=== PATIENT | female | born 1985 | race Caucasian/White ===

== ENCOUNTER → 2020-08-18 | Outpatient (CLI) | payer BC ==
[~2020-08-18] MED LIST: PREN1TAB19 PO
--- NOTE | 2020-08-18 16:02 | Diagnostic Imaging Report ---
INDICATION: Non toxic goiter. TECHNIQUE: Grayscale sonographic images of the thyroid gland. CORRELATION STUDY: None. FINDINGS: RIGHT LOBE: Asymmetrically enlarged 6.0 x 4.1 x 3.6 cm. There is heterogeneous echotexture throughout the enlarged right lobe with increased vascularity. There is what appears to be a fairly large mass occupying majority of the right lobe. This measures 5.4 x 4.0 x 3.2 cm. While slightly heterogeneous, it is predominantly solid. Vascularity is present. No definitive microcalcification. LEFT LOBE: Borderline enlarged 4.8 x 1.8 x 2.1 cm. There is normal echotexture about the left lobe. Isthmus appears unremarkable. IMPRESSION: Large, 5.4 cm mass occupying majority of the right thyroid lobe. TR 4 lesion, moderately suspicious. Fine needle aspiration is recommended. (Normal gland size: 4-5 x 2 x 2 cm) Dictated by: Dictated on workstation # [id number]
--- NOTE | 2020-08-21 09:26 | Diagnostic Imaging Report ---
INDICATION: Routine screening. COMPARISON: No prior mammograms are available for comparison. This is a baseline study. TECHNIQUE: 2D and 3D bilateral screening mammography was performed with CAD. FINDINGS: Scattered fibroglandular densities are identified bilaterally. There is an asymmetric area of increased density in the medial left breast at mid depth. No discrete mass is identified and this may represent benign parenchymal asymmetry. There is a benign nodule in the outer and slightly upper right breast retroareolar region. Scattered benign calcifications are noted. No malignant appearing microcalcifications are seen. The axillae are unremarkable. IMPRESSION: No mammographic features suspicious for malignancy are identified. ACR BI-RADS Category 2: Benign findings. Result letter will be mailed to the patient. Note: At least 10% of breast cancer is not imaged by mammography. Dictated by: Dictated on workstation # [id number]
== END ==
LOC: RAD 14:50
PROVIDERS: ATTEND Obstetrics & Gynecology
DX: Z12.31 Encounter for screening mammogram for malignant neoplasm of breast (principal); E04.9 Nontoxic goiter, unspecified
CPT/HCPCS: 76536; 77063; 77067

== ENCOUNTER → 2020-10-18 | Outpatient (CLI) | payer BC ==
[~2020-10-18] VITALS: Ht 170.2 cm; Wt 77.3 kg
[~2020-10-18] MED LIST changes: +LIDOCAINE 1% INJ 20 ML 20 ML VIAL INJ ONE
--- NOTE | 2020-10-18 10:14 | Diagnostic Imaging Report ---
Indication: Right thyroid nodule. Patient presents for ultrasound-guided fine-needle aspiration and biopsy. Patient brought to the procedure room and placed on table in the supine position. Ultrasound imaging of the right neck was performed evaluate appropriate entry site. The right neck was then prepped and draped in usual sterile fashion. Small amount of 1% lidocaine was utilized for local anesthesia. A total of 4 passes were made into the dominant solid mass right lobe of thyroid utilizing 25-gauge needles and fine-needle aspiration technique. A single pass was made with a Rotex needle and Rotex biopsy was performed. Patient tolerated procedure well and left the department in stable condition. IMPRESSION: Successful ultrasound-guided fine-needle aspiration and Rotex biopsy of the dominant right lobe thyroid mass. Pathology results are currently pending. Dictated by: Dictated on workstation # [id number]
== END ==
LOC: RAD 09:00
PROVIDERS: ATTEND Otolaryngology Otolaryngology/Facial Plastic Surgery
DX: E07.9 Disorder of thyroid, unspecified (principal)
CPT/HCPCS: 10005